=== PATIENT | female | born 1940 | race Caucasian/White ===

== ENCOUNTER 2022-07-24 12:00 | Inpatient (IN) | payer OTHER ==
[~2022-07-24] VITALS: Ht 165.1 cm; Wt 63.5 kg
[2022-07-24 12:08] VITALS: BP 121/55; PULSE 100; RESP 20; TEMP 100.1; O2SAT 96
--- NOTE | 2022-07-24 12:25 | NUR ---
PT W/ FEVER 102.9 - ORAL. MADE AWARE. COOLING MEASURES IN PLACE.
[2022-07-24 12:30] VITALS: O2SAT 97
--- NOTE | 2022-07-24 12:30 | NUR ---
81YO FEMALE PT [facility] C/O GEN WEAK AND SORE THROAT X3DAYS. REPORTS DECREASE IN APPT AND FEELING LETHARGIC. DENIES N/V/D,CHEST PAIN OR SOB. PT AAOX3. AMB W/ ASSIST. W/ FEVER AT ARRIVAL. COOLING RAGS IN PLACE HX: HTN, HLD, HYPOTHYROID, DM, DIMENTIA NKA
[2022-07-24] MEDS ORDERED: NACL 0.9% 1,000 ML IV SCH (12:45)
[2022-07-24] MEDS ORDERED: ACETAMINOPHEN EXTRA STRENGTH 500 MG TAB PO ONE (12:45)
--- NOTE | 2022-07-24 12:45 | NUR ---
SIN AT BEDSIDE FOR EVALUATION
--- NOTE | 2022-07-24 13:02 | NUR ---
pt swabbed for covid(diandra), flu and strepx2. walked and handed to lab
[2022-07-24 13:11] LABS: HEMATOCRIT 34.3 % (36-48); HEMOGLOBIN 11.6 g/dL (12.0-16.0); MEAN CORPUSCULAR HEMOGLOBIN 27 pg (27-31); MEAN CORPUSCULAR HGB CONC 34 g/dL (33-37); MEAN CORPUSCULAR VOLUME 78.7 fL (80-94); PLATELET COUNT (AUTO) 244 K/uL (140-450); RED BLOOD CELL COUNT(AUTO) 4.35 MIL/uL (4.20-5.40); RED CELL DISTRIBUTION WIDTH 15.5 % (11.6-13.7); WHITE BLOOD COUNT (AUTO) 14.4 K/uL (4.8-10.8)
[2022-07-24 13:34] LABS: ANION GAP 13.8 (8-16); ASPARTATE AMINOTRANSFERASE 35 U/L (15-37); CARBON DIOXIDE 26.3 mmol/L (21-32); CHLORIDE 96 mmol/L (98-107); CREATININE 1.1 mg/dL (0.6-1.3); GLUCOSE 296 mg/dL (74-106); POTASSIUM 3.1 mmol/L (3.5-5.1); SODIUM SERUM 133 mmol/L (136-145); TOTAL BILIRUBIN 0.9 mg/dL (0.0-1.0); UREA NITROGEN, BLOOD 22 mg/dL (7-18)
[2022-07-24 13:42] LABS: EOSINOPHILS % (MANUAL) 2 % (0-4); LYMPHOCYTES % (MANUAL) 2 % (20-46); MONOCYTES % (MANUAL) 3 % (5-12)
[2022-07-24] MEDS ORDERED: PIPERACILLIN/TAZOBACTAM 3.375 GM in DEXTROSE 5% 50 ML IV ONE (13:45)
[2022-07-24] MEDS ORDERED: VANCOMYCIN 1,000 MG in DEXTROSE 5% 250 ML IV ONE (13:45)
[2022-07-24] MEDS ORDERED: NACL 0.9% 1,000 ML IV ONE ×2 (13:45→14:15)
[2022-07-24] MEDS ORDERED: VANCOMYCIN 1,000 MG VIAL ONE (13:57)
[2022-07-24] MEDS ORDERED: PIPERACILLIN/TAZOBACTAM 3.375 GM VIAL IV ONE ×2 (13:57→21:26)
[2022-07-24 13:59] LABS: BILIRUBIN,URINE NEGATIVE (NEGATIVE); BLOOD, URINE 2+ (NEGATIVE); LEUKOCYTE ESTERASE ,URINE 3+ (NEGATIVE); NITRITE, URINE NEGATIVE (NEGATIVE); UGLUCOSE NEGATIVE (NEGATIVE)
[2022-07-24 14:08] LABS: APPEARANCE,URINE CLOUDY (CLEAR); COLOR,URINE AMBER (YELLOW)
[2022-07-24 14:10] LABS: RBC,URINE 11-20 (MOD) /HPF (0-5)
[2022-07-24] MEDS ORDERED: METF-346 PO (15:07)
[2022-07-24] MEDS ORDERED: CLON0.1T16 PO (15:07)
[2022-07-24] MEDS ORDERED: AMLO10TA88 PO (15:07)
[2022-07-24] MEDS ORDERED: ESCI-28 PO (15:07)
[2022-07-24] MEDS ORDERED: FURO20TA8 PO (15:07)
[2022-07-24] MEDS ORDERED: DICL100G5 TP (15:07)
[2022-07-24] MEDS ORDERED: MELO-174 PO (15:07)
[2022-07-24] MEDS ORDERED: ROSU10TA34 PO (15:07)
[2022-07-24] MEDS ORDERED: [UNRECOGNIZED DRUG - CODE] PO (15:07)
[2022-07-24] MEDS: POTASSIUM CHLORIDE 10 MEQ TABER PO ONE ×2 (15:30→15:33)
[2022-07-24] MEDS ORDERED: POTASSIUM CHLORIDE 10 MEQ TABER PO ONE (15:32)
[2022-07-24] MEDS ORDERED: ONDANSETRON 4 MG/2 ML VIAL IVP PRN (15:50)
[2022-07-24] MEDS ORDERED: HYDROcodone/APAP 5/325 MG 1 TAB TAB PO PRN ×2 (15:50)
[2022-07-24] MEDS ORDERED: DEXTROSE 50% 50 ML SYR IVP PRN (15:50)
[2022-07-24 16:40] VITALS: O2SAT 97
[2022-07-24] MEDS: BLOOD GLUCOSE MONITORING 1 DEV DEV FS SCH ×2 (16:41→21:25)
[2022-07-24] MEDS: INSULIN LISPRO SLIDING SCALE 100 UNITS/ML VIAL SUBQ PRN (16:42)
--- NOTE | 2022-07-24 18:10 | NUR ---
pt provided w/ dinner. pt awake, repositioned and eating in bed
--- NOTE | 2022-07-24 18:49 | NUR ---
The patient's care was reviewed and supervised by [facility], RN.
--- NOTE | 2022-07-24 19:32 | NUR ---
REPORT GIVEN TO CYNTHIA MERCEDES. TRANSFER OF CARE AT THIS TIME
[2022-07-24 20:02] VITALS: PULSE 64
[2022-07-24] MEDS: INSULIN LANTUS 100 UNITS/ML 10 ML VIAL SUBQ SCH (21:31)
[2022-07-24] MEDS: PIPERACILLIN/TAZOBACTAM 3.375 GM in DEXTROSE 5% 50 ML IV SCH (21:37)
--- NOTE | 2022-07-24 21:45 | NUR ---
Patient will be admitted to care of [facility]. Admited to TELE. Will go to [id number]. Belongings list completed. Report to Mariya MERCEDES.
[2022-07-24 21:50] VITALS: PULSE 58; RESP 17; O2SAT 96
--- NOTE | 2022-07-24 21:50 | NUR ---
ADMITTED A FEMALE PATIENT FROM ER VIA [facility] WITH CC: INCREASE LETHARGY. PT AWAKE ALERT ORIENTED. NO ACUTE DISTRESS, ON O2 AT 2L NC TOLERATING WELL. AMBULATORY. MRSA SCREENING DONE. SAFETY PRECAUTIONS IN PLACE. CALL LIGHT WITHIN REACH.
--- NOTE | 2022-07-24 22:15 | NUR ---
pt sister Nguyen is ok to translate due to pt speakig south korean only. Nguyen Beltran [phone]
[2022-07-25] VITALS (8 sets, daily range): BP systolic 92–118; BP diastolic 45–58; PULSE 58–90; RESP 17–20; TEMP 96.1–99.8; O2SAT 93–100
[2022-07-25] MEDS ORDERED: PIPERACILLIN/TAZOBACTAM 3.375 GM VIAL IV ONE (04:28)
[2022-07-25] MEDS: PIPERACILLIN/TAZOBACTAM 3.375 GM in DEXTROSE 5% 50 ML IV SCH ×3 (04:50→20:32)
[2022-07-25] MEDS: LEVOTHYROXINE 0.1 MG TAB PO SCH (05:41)
[2022-07-25] MEDS: INSULIN LISPRO SLIDING SCALE 100 UNITS/ML VIAL SUBQ PRN ×4 (06:32→20:38)
[2022-07-25 06:40] LABS: ANION GAP 9.4 (8-16); CARBON DIOXIDE 27.9 mmol/L (21-32); CHLORIDE 105 mmol/L (98-107); CREATININE 0.9 mg/dL (0.6-1.3); GLUCOSE 195 mg/dL (74-106); POTASSIUM 3.3 mmol/L (3.5-5.1); SODIUM SERUM 139 mmol/L (136-145); UREA NITROGEN, BLOOD 23 mg/dL (7-18)
[2022-07-25 07:05] LABS: BASOPHILS % (AUTO) 0.2 % (0.0-2.0); EOSINOPHILS % (AUTO) 0.3 % (0.0-4.0); HEMATOCRIT 30.3 % (36-48); HEMOGLOBIN 10.3 g/dL (12.0-16.0); LYMPHOCYTES # (AUTO) 0.6 K/uL (2.5-16.5); LYMPHOCYTES % (AUTO) 6.8 % (20.5-51.1); MEAN CORPUSCULAR HEMOGLOBIN 27 pg (27-31); MEAN CORPUSCULAR HGB CONC 34 g/dL (33-37); MEAN CORPUSCULAR VOLUME 79.3 fL (80-94); MONOCYTES # (AUTO) 0.5 K/uL (0.8-1.0); NEUTROPHILS # (AUTO) 7.5 K/uL (1.8-7.7); NEUTROPHILS % (AUTO) 86.7 % (42.2-75.2); PLATELET COUNT (AUTO) 166 K/uL (140-450); RED BLOOD CELL COUNT(AUTO) 3.82 MIL/uL (4.20-5.40); RED CELL DISTRIBUTION WIDTH 15.7 % (11.6-13.7); WHITE BLOOD COUNT (AUTO) 8.7 K/uL (4.8-10.8)
--- NOTE | 2022-07-25 07:12 | NUR ---
GAVE BEDSIDE REPORT TO NURSE NASEEM FOR CONTINUITY OF CARE. PATIENT STABLE.
--- NOTE | 2022-07-25 07:24 | NUR ---
receive the patient from the senior attorney Mariya in rm [address] aox4 with admitting diagnosis of sepsis , urosepsis on antibiotics therapy . will continue to monitor
[2022-07-25] MEDS: BLOOD GLUCOSE MONITORING 1 DEV DEV FS SCH ×4 (08:14→20:35)
--- NOTE | 2022-07-25 08:32 | NUR ---
potassium level 3.3 , magnesium level 1.7 . md made aware . will wait for an order .
--- NOTE | 2022-07-25 08:47 | NUR ---
PATIENT HAS BEEN SCREENED AND CATEGORIZED HIGH NUTRITION RISK. PATIENT WILL BE SEEN WITHIN 1-2 DAYS OF ADMISSION. 07/25/22-07/26/22 [facility] REFERRAL FOR UNCONTROLLED DIABETES RECEIVED ON 07/25/22. [address]
[2022-07-25] MEDS ORDERED: NON-FORMULARY ITEM (Amlodipine Besylate 1 TAB) PO SCH (09:00)
[2022-07-25] MEDS ORDERED: NON-FORMULARY ITEM (Escitalopram Oxalate (Escitalopram Oxalate) 1 TAB) PO SCH (09:00)
[2022-07-25] MEDS ORDERED: ROSUVASTATIN CALCIUM PO SCH (09:00)
--- NOTE | 2022-07-25 09:10 | NUR ---
Veena Warner adminitrator of [facility] called for an update regarding the plan of care
[2022-07-25] MEDS ORDERED: POTASSIUM CHLORIDE 10 MEQ TABER PO SCH (09:15)
[2022-07-25] MEDS ORDERED: MAG SULF 2000 MG/WATER PREMIX 50 ML IV SCH (09:15)
[2022-07-25] MEDS: ESCITALOPRAM 20 MG TAB PO SCH (09:28)
[2022-07-25] MEDS: ATORVASTATIN 20 MG TAB PO SCH (09:29)
[2022-07-25] MEDS: amLODIPine 5 MG TAB PO SCH (09:29)
[2022-07-25] MEDS: ENOXAPARIN 40 MG/0.4 ML SYR SUBQ SCH (09:30)
--- NOTE | 2022-07-25 09:31 | NUR ---
md order magnesium 2000 mg iv , potassium tab for replacement
--- NOTE | 2022-07-25 12:55 | NUR ---
grommet worker inform the RN to add CCho to her cardiac diet
--- NOTE | 2022-07-25 15:03 | NUR ---
Stefania the nurse practitioner for [facility] called for an update
--- NOTE | 2022-07-25 15:24 | NUR ---
07/25/22 RD INITIAL ASSESSMENT COMPLETED PLEASE REFER TO NUTRITION ASSESSMENT UNDER CARE ACTIVITY FOR ESTIMATED NUTRITIONAL NEEDS. 1. RD RECOMMENDS CONTINUE WITH CARDIAC DIET AND ADD CCHO DIET TOLERATED 2. RD TO FOLLOW-UP 3-5 DAYS, MODERATE RISK ADORE SIMMS RD
--- NOTE | 2022-07-25 18:40 | NUR ---
will endorse to fast food shift supervisor rn for continuity of care for antibiotic therapy for sepsis , urinary tract infection
--- NOTE | 2022-07-25 20:23 | NUR ---
RECEIVED REPORT FROM AM NURSE FOR CONTINUITY OF CARE. PATIENT ALERT ORIENTED IN NO ACUTE DISTRESS. ON 2L NC SATING 96%. DENIES PAIN. CALL LIGHT IN REACH. ASSISTED PATIENT TO THE RESTROOM. SAFETY MEASURES IN PLACE.
--- NOTE | 2022-07-25 20:32 | NUR ---
ADMINISTERED SCHEDULED DUE MEDICATIONS.
[2022-07-25] MEDS: INSULIN LANTUS 100 UNITS/ML 10 ML VIAL SUBQ SCH (20:39)
[2022-07-26] VITALS (9 sets, daily range): BP systolic 99–134; BP diastolic 42–56; PULSE 55–72; RESP 17–20; TEMP 37.2; O2SAT 95–98
[2022-07-26] MEDS: PIPERACILLIN/TAZOBACTAM 3.375 GM in DEXTROSE 5% 50 ML IV SCH ×3 (04:23→21:25)
[2022-07-26] MEDS: LEVOTHYROXINE 0.1 MG TAB PO SCH (05:33)
[2022-07-26] MEDS: BLOOD GLUCOSE MONITORING 1 DEV DEV FS SCH ×4 (06:32→21:10)
[2022-07-26] MEDS: INSULIN LISPRO SLIDING SCALE 100 UNITS/ML VIAL SUBQ PRN ×4 (06:33→21:17)
[2022-07-26 06:45] LABS: ANION GAP 9.9 (8-16); CHLORIDE 103 mmol/L (98-107); CREATININE 0.8 mg/dL (0.6-1.3); GLUCOSE 206 mg/dL (74-106); POTASSIUM 3.9 mmol/L (3.5-5.1); SODIUM SERUM 137 mmol/L (136-145); UREA NITROGEN, BLOOD 15 mg/dL (7-18)
[2022-07-26 06:55] LABS: BASOPHILS % (AUTO) 0.1 % (0.0-2.0); EOSINOPHILS # (AUTO) 0.1 K/uL (0-0.4); EOSINOPHILS % (AUTO) 1.6 % (0.0-4.0); HEMATOCRIT 29.7 % (36-48); HEMOGLOBIN 10.1 g/dL (12.0-16.0); LYMPHOCYTES % (AUTO) 14.2 % (20.5-51.1); MEAN CORPUSCULAR HEMOGLOBIN 27 pg (27-31); MEAN CORPUSCULAR HGB CONC 34 g/dL (33-37); MEAN CORPUSCULAR VOLUME 79.3 fL (80-94); MONOCYTES # (AUTO) 0.7 K/uL (0.8-1.0); MONOCYTES % (AUTO) 9.3 % (1.7-9.3); NEUTROPHILS # (AUTO) 5.2 K/uL (1.8-7.7); NEUTROPHILS % (AUTO) 74.8 % (42.2-75.2); PLATELET COUNT (AUTO) 148 K/uL (140-450); RED BLOOD CELL COUNT(AUTO) 3.75 MIL/uL (4.20-5.40); RED CELL DISTRIBUTION WIDTH 15.9 % (11.6-13.7)
--- NOTE | 2022-07-26 07:06 | NUR ---
receive from the assistant casino shift manager ama Meraz in rm [address]B aox3 with episode of confusion . admitting diagnosis of sepsis , urinary tract infection .will continue with antibiotics ,monitor blood sugar . will continue to monitor
[2022-07-26] MEDS: amLODIPine 5 MG TAB PO SCH (08:55)
[2022-07-26] MEDS: ESCITALOPRAM 20 MG TAB PO SCH (08:56)
[2022-07-26] MEDS: ATORVASTATIN 20 MG TAB PO SCH (08:56)
[2022-07-26] MEDS: ENOXAPARIN 40 MG/0.4 ML SYR SUBQ SCH (08:57)
--- NOTE | 2022-07-26 10:17 | NUR ---
Maylin hospice social worker for [facility] called . the rn gave her update for the patient
--- NOTE | 2022-07-26 11:27 | NUR ---
pt MRSA positive inform MD rivera .
[2022-07-26] MEDS: MUPIROCIN CA NASAL 2% 1GM TUBE NS SCH (11:43)
[2022-07-26] MEDS: CHLORHEXADINE GLUC 2% CLOTH TP SCH (11:44)
--- NOTE | 2022-07-26 12:33 | NUR ---
transfer to medical surgical . discontinue heart monitor
--- NOTE | 2022-07-26 18:30 | NUR ---
will endorse to night warehouse manager rn for continuity of care . still with antibiotics Piperacillin for sepsis , urinary tract infection . will do blood sugar check with sliding scale
--- NOTE | 2022-07-26 19:00 | NUR ---
RECEIVED PT, ON BED AWAKE AND ALERT. PT ABLE TO VERBALIZED NEEDS. PT IS WITH INTERMITTENT CONFUSION. PT IS RENAL DIET. PT IS CONTINENT AND ABLE TO AMBULATE TO RESTROOM INDEPENDENTLY. IV SITE IS AT RIGHT HAND 22G. SKIN IS INTACT.
[2022-07-26] MEDS: INSULIN LANTUS 100 UNITS/ML 10 ML VIAL SUBQ SCH (21:17)
--- NOTE | 2022-07-26 22:00 | NUR ---
PT IS SLEEPING WELL. NO FACIAL GRIMACING. NO SOB OR DISTRESS.
--- NOTE | 2022-07-27 01:00 | NUR ---
PT IS ASLEEP.
[2022-07-27 04:00] VITALS: BP 118/57; PULSE 63; RESP 18; TEMP 97.4; O2SAT 98
[2022-07-27] MEDS: PIPERACILLIN/TAZOBACTAM 3.375 GM in DEXTROSE 5% 50 ML IV SCH ×2 (05:55→12:24)
[2022-07-27 06:38] LABS: BASOPHILS % (AUTO) 0.3 % (0.0-2.0); EOSINOPHILS # (AUTO) 0.1 K/uL (0-0.4); EOSINOPHILS % (AUTO) 1.2 % (0.0-4.0); HEMATOCRIT 33.3 % (36-48); HEMOGLOBIN 11.3 g/dL (12.0-16.0); LYMPHOCYTES # (AUTO) 1.2 K/uL (2.5-16.5); LYMPHOCYTES % (AUTO) 20.6 % (20.5-51.1); MEAN CORPUSCULAR HEMOGLOBIN 27 pg (27-31); MEAN CORPUSCULAR HGB CONC 34 g/dL (33-37); MEAN CORPUSCULAR VOLUME 79.2 fL (80-94); MONOCYTES # (AUTO) 0.5 K/uL (0.8-1.0); MONOCYTES % (AUTO) 9.2 % (1.7-9.3); NEUTROPHILS % (AUTO) 68.7 % (42.2-75.2); PLATELET COUNT (AUTO) 200 K/uL (140-450); RED BLOOD CELL COUNT(AUTO) 4.21 MIL/uL (4.20-5.40); RED CELL DISTRIBUTION WIDTH 15.7 % (11.6-13.7); WHITE BLOOD COUNT (AUTO) 5.8 K/uL (4.8-10.8)
[2022-07-27] MEDS: LEVOTHYROXINE 0.1 MG TAB PO SCH (06:40)
[2022-07-27] MEDS: BLOOD GLUCOSE MONITORING 1 DEV DEV FS SCH ×2 (06:41→12:19)
[2022-07-27] MEDS: INSULIN LISPRO SLIDING SCALE 100 UNITS/ML VIAL SUBQ PRN ×2 (06:42→12:24)
[2022-07-27 06:43] LABS: ANION GAP 12.7 (8-16); CARBON DIOXIDE 26.8 mmol/L (21-32); CHLORIDE 102 mmol/L (98-107); CREATININE 0.8 mg/dL (0.6-1.3); GLUCOSE 168 mg/dL (74-106); POTASSIUM 3.5 mmol/L (3.5-5.1); SODIUM SERUM 138 mmol/L (136-145); UREA NITROGEN, BLOOD 13 mg/dL (7-18)
--- NOTE | 2022-07-27 07:15 | NUR ---
PT IS ON STABLE CONDITION. ENDORSED TO DAY SHIFT NURSE FOR CONTINUITY OF CARE. SAFETY MEASURES ARE IN PLACE.
--- NOTE | 2022-07-27 07:15 | NUR ---
RECEIVED REPORT FROM VIRTUAL ASSISTANT NURSE FOR CONTINUITY OF CARE. PT STABLE AT THIS TIME.
[2022-07-27 08:00] VITALS: BP 122/50; PULSE 61; PULSE 97; RESP 16; RESP 18; TEMP 97.9; O2SAT 97
[2022-07-27] MEDS: ESCITALOPRAM 20 MG TAB PO SCH (09:39)
[2022-07-27] MEDS: amLODIPine 5 MG TAB PO SCH (09:40)
[2022-07-27] MEDS: ATORVASTATIN 20 MG TAB PO SCH (09:40)
[2022-07-27] MEDS: ENOXAPARIN 40 MG/0.4 ML SYR SUBQ SCH (09:41)
--- NOTE | 2022-07-27 10:51 | NUR ---
CALLED [facility] AND ASKED WHAT THERE PROCESS WAS FOR A PATIENT TO GO BACK TO THEM THEY SAID TO FAX ANY NEW ORDERS IF ANY AND WE WOULD HAVE TO ARRANGE TRANSPORTATION FOR ANY TIME BUT PATIENT WILL BE GOING TO ROOM 14. CALLED [employer] AND WAS ABLE TO ARRANGE GURNEY TRANSPORTATION WITH 2L OF O2 NC FOR 1300 [employer] TIME NURSE MICHEL AWARE OF THE ABOVE INFORMATION. Addendum: 07/27/22 at 1058 by CAESAR ANNE CM CALLED PATIENTS SISTER JOSELO AND INFORMED HER OF THE ABOVE INFORMATION. RESERVATION #[id number] FOR TRANSPORT.
[2022-07-27] MEDS: MUPIROCIN CA NASAL 2% 1GM TUBE NS SCH (12:18)
[2022-07-27] MEDS: CHLORHEXADINE GLUC 2% CLOTH TP SCH (12:24)
[2022-07-27 12:32] VITALS: BP 122/50; PULSE 61; RESP 16; TEMP 97.9
== END 2022-07-27 14:21 | DRG 871 ==
LOC: MED 12:00 → MMU 15:49 → MTU 20:40
PROVIDERS: ADMIT Internal Medicine; ATTEND Internal Medicine
DX: A41.9 Sepsis, unspecified organism (principal); J96.00 Acute respiratory failure, unspecified whether with hypoxia or hypercapnia; N39.0 Urinary tract infection, site not specified; E44.0 Moderate protein-calorie malnutrition; F03.90 Unspecified dementia, unspecified severity, without behavioral disturbance, psychotic disturbance, mood disturbance, and anxiety; Z68.23 Body mass index [BMI] 23.0-23.9, adult; E03.9 Hypothyroidism, unspecified; E78.00 Pure hypercholesterolemia, unspecified; I10 Essential (primary) hypertension; E11.9 Type 2 diabetes mellitus without complications; Z20.822 Contact with and (suspected) exposure to COVID-19; B96.20 Unspecified Escherichia coli [E. coli] as the cause of diseases classified elsewhere
CPT/HCPCS: 36415; 71045; 80048; 80053; 81001; 82550; 82948; 83605; 83735; 84484; 85025; 85610; 85730; 87040; 87081; 87086; 93005; 96361; 96365; 96375; 99291; J1650; J1815; J2543; J3370; J3475; J7060; Q0092

== ENCOUNTER 2022-11-04 18:48 | Inpatient (IN) | payer OTHER ==
[~2022-11-04] VITALS: Ht 165.1 cm; Wt 74.8 kg
[~2022-11-04 18:48] MED LIST: AMLO10TA88 PO; CLON0.1T16 PO; DICL100G32 TP; ESCI-28 PO; FURO20TA8 PO; MELO-174 PO; METF-346 PO; ROSU10TA34 PO; [UNRECOGNIZED DRUG - CODE] PO
[2022-11-04 18:59] VITALS: BP 136/68; PULSE 59; RESP 14; TEMP 96.6; O2SAT 98
[2022-11-04 20:16] LABS: BASOPHILS % (AUTO) 0.4 % (0.0-2.0); EOSINOPHILS # (AUTO) 0.2 K/uL (0-0.4); EOSINOPHILS % (AUTO) 1.6 % (0.0-4.0); HEMATOCRIT 27.1 % (36-48); HEMOGLOBIN 9.9 g/dL (12.0-16.0); LYMPHOCYTES # (AUTO) 3.3 K/uL (2.5-16.5); LYMPHOCYTES % (AUTO) 30.7 % (20.5-51.1); MEAN CORPUSCULAR HEMOGLOBIN 27 pg (27-31); MEAN CORPUSCULAR HGB CONC 37 g/dL (33-37); MEAN CORPUSCULAR VOLUME 74.9 fL (80-94); MONOCYTES # (AUTO) 0.7 K/uL (0.8-1.0); MONOCYTES % (AUTO) 6.7 % (1.7-9.3); NEUTROPHILS # (AUTO) 6.5 K/uL (1.8-7.7); NEUTROPHILS % (AUTO) 60.6 % (42.2-75.2); PLATELET COUNT (AUTO) 278 K/uL (140-450); RED BLOOD CELL COUNT(AUTO) 3.61 MIL/uL (4.20-5.40); RED CELL DISTRIBUTION WIDTH 17.2 % (11.6-13.7); WHITE BLOOD COUNT (AUTO) 10.8 K/uL (4.8-10.8)
[2022-11-04 20:59] LABS: ALANINE AMINOTRANSFERASE 41 U/L (12-78); ALBUMIN 3.9 g/dL (3.4-5.0); ALKALINE PHOSPHATASE 65 U/L (50-136); ANION GAP 13.2 (8-16); ASPARTATE AMINOTRANSFERASE 59 U/L (15-37); CALCIUM 10.3 mg/dL (8.5-10.1); CARBON DIOXIDE 24.6 mmol/L (21-32); CHLORIDE 79 mmol/L (98-107); GLUCOSE 62 mg/dL (74-106); LIPASE 493 U/L (73-393); TOTAL BILIRUBIN 1.4 mg/dL (0.0-1.0); UREA NITROGEN, BLOOD 9 mg/dL (7-18)
[2022-11-04 21:02] LABS: POTASSIUM 2.8 mmol/L (3.5-5.1); SODIUM SERUM 114 mmol/L (136-145)
[2022-11-04] MEDS ORDERED: KCL 20 MEQ IN 100 mL PREMIX 200 ML IV ONE (21:35)
[2022-11-04 22:33] LABS: APPEARANCE,URINE HAZY (CLEAR); BILIRUBIN,URINE NEGATIVE (NEGATIVE); BLOOD, URINE TRACE-I (NEGATIVE); COLOR,URINE YELLOW (YELLOW); LEUKOCYTE ESTERASE ,URINE 3+ (NEGATIVE); NITRITE, URINE NEGATIVE (NEGATIVE); PROTEIN,URINE 1+ (NEGATIVE); UGLUCOSE NEGATIVE (NEGATIVE); UROBILINOGEN,URINE 0.2 EU/dL (0.2 - 1)
[2022-11-04 22:50] LABS: FLU A ANTIGEN negative (NEGATIVE); FLU B ANTIGEN NEGATIVE (NEGATIVE)
[2022-11-04 23:02] LABS: BACTERIA,URINE 3+ /HPF (None Seen); RBC,URINE NONE SEEN /HPF (0-5); SQUAMOUS EPITHELIAL CELL,UR 0-3 (FEW) /LPF (0-3 (FEW)); WBC,URINE 80-100 /HPF (0-5)
[2022-11-05] MEDS ORDERED: cefTRIAXone 1,000 MG VIAL ONE (03:12)
[2022-11-05] MEDS ORDERED: KCL 20 MEQ IN 100 mL PREMIX 100 ML IV ONE (04:52)
[2022-11-05 05:18] VITALS: BP 119/95; PULSE 67; RESP 18; TEMP 97; O2SAT 96
[2022-11-05] MEDS ORDERED: POTASSIUM CHLORIDE 10 MEQ TABER PO PRN (07:45)
[2022-11-05] MEDS ORDERED: LORazepam 2 MG/ML VIAL IVP PRN (07:45)
[2022-11-05] MEDS ORDERED: ZOLPIDEM 10 MG TAB PO PRN (07:45)
[2022-11-05] MEDS ORDERED: DOCUSATE SODIUM 100 MG GELCAP PO PRN (07:45)
[2022-11-05] MEDS ORDERED: MORPHINE SULFATE 2 MG/ML SYR IVP PRN (07:45)
[2022-11-05] MEDS ORDERED: MAG SULF 2000 MG/WATER PREMIX 50 ML IV PRN (07:45)
[2022-11-05] MEDS ORDERED: ONDANSETRON 4 MG/2 ML VIAL IVP PRN (07:45)
[2022-11-05] MEDS ORDERED: POTASSIUM CHL 20 MEQ/NACL 0.9% 1,000 ML IV SCH (07:50)
[2022-11-05 08:00] VITALS: BP 146/68; PULSE 62; PULSE 63; RESP 17; TEMP 96.2; O2SAT 97
[2022-11-05] MEDS: NACL 0.9% 1,000 ML IV SCH ×2 (10:48→23:47)
[2022-11-05 10:55] LABS: CALCIUM 9.3 mg/dL (8.5-10.1); CARBON DIOXIDE 26.5 mmol/L (21-32); CHLORIDE 87 mmol/L (98-107); CREATININE 0.9 mg/dL (0.6-1.3); GLUCOSE 97 mg/dL (74-106); POTASSIUM 3.5 mmol/L (3.5-5.1); UREA NITROGEN, BLOOD 8 mg/dL (7-18)
[2022-11-05 10:58] LABS: SODIUM SERUM 120 mmol/L (136-145)
[2022-11-05 12:00] VITALS: BP 135/61; PULSE 66; RESP 17; TEMP 97.1; O2SAT 97
[2022-11-05 12:07] VITALS: O2SAT 95
[2022-11-05 12:19] LABS: URINE TOTAL PROTEIN 37.7 mg/dL (0-12)
[2022-11-05 13:30] LABS: ANION GAP 9.8 (8-16); CALCIUM 9.3 mg/dL (8.5-10.1); CARBON DIOXIDE 27.8 mmol/L (21-32); CHLORIDE 87 mmol/L (98-107); CREATININE 0.9 mg/dL (0.6-1.3); GLUCOSE 99 mg/dL (74-106); POTASSIUM 3.6 mmol/L (3.5-5.1); UREA NITROGEN, BLOOD 9 mg/dL (7-18)
[2022-11-05 13:33] LABS: SODIUM SERUM 121 mmol/L (136-145)
[2022-11-05 16:00] VITALS: PULSE 66
[2022-11-05 18:23] LABS: ANION GAP 10.6 (8-16); CALCIUM 9.3 mg/dL (8.5-10.1); CARBON DIOXIDE 25.8 mmol/L (21-32); CHLORIDE 88 mmol/L (98-107); CREATININE 0.8 mg/dL (0.6-1.3); GLUCOSE 100 mg/dL (74-106); POTASSIUM 3.4 mmol/L (3.5-5.1); SODIUM SERUM 121 mmol/L (136-145); UREA NITROGEN, BLOOD 11 mg/dL (7-18)
[2022-11-05 20:00] VITALS: BP 133/66; PULSE 68; RESP 18; TEMP 96.8; O2SAT 96; O2SAT 98
[2022-11-06] VITALS: BP 131/64; PULSE 63; PULSE 65; RESP 18; TEMP 96.4; O2SAT 98
[2022-11-06 00:25] LABS: ANION GAP 10.2 (8-16); CARBON DIOXIDE 25.8 mmol/L (21-32); CHLORIDE 90 mmol/L (98-107); CREATININE 0.9 mg/dL (0.6-1.3); GLUCOSE 101 mg/dL (74-106); SODIUM SERUM 122 mmol/L (136-145); UREA NITROGEN, BLOOD 10 mg/dL (7-18)
[2022-11-06 04:00] VITALS: BP 133/62; PULSE 60; PULSE 61; RESP 18; TEMP 96.1; O2SAT 97
[2022-11-06 06:31] LABS: BASOPHILS % (AUTO) 0.4 % (0.0-2.0); EOSINOPHILS # (AUTO) 0.2 K/uL (0-0.4); EOSINOPHILS % (AUTO) 2.3 % (0.0-4.0); HEMATOCRIT 27.1 % (36-48); HEMOGLOBIN 9.5 g/dL (12.0-16.0); LYMPHOCYTES # (AUTO) 1.5 K/uL (2.5-16.5); LYMPHOCYTES % (AUTO) 21.5 % (20.5-51.1); MEAN CORPUSCULAR HEMOGLOBIN 28 pg (27-31); MEAN CORPUSCULAR HGB CONC 35 g/dL (33-37); MEAN CORPUSCULAR VOLUME 78.6 fL (80-94); MONOCYTES # (AUTO) 0.4 K/uL (0.8-1.0); NEUTROPHILS # (AUTO) 4.8 K/uL (1.8-7.7); NEUTROPHILS % (AUTO) 69.8 % (42.2-75.2); PLATELET COUNT (AUTO) 235 K/uL (140-450); RED BLOOD CELL COUNT(AUTO) 3.45 MIL/uL (4.20-5.40); RED CELL DISTRIBUTION WIDTH 17.7 % (11.6-13.7); WHITE BLOOD COUNT (AUTO) 6.9 K/uL (4.8-10.8)
[2022-11-06 06:54] LABS: ANION GAP 10.8 (8-16); CALCIUM 9.1 mg/dL (8.5-10.1); CARBON DIOXIDE 24.1 mmol/L (21-32); CHLORIDE 92 mmol/L (98-107); CREATININE 0.8 mg/dL (0.6-1.3); GLUCOSE 113 mg/dL (74-106); POTASSIUM 3.9 mmol/L (3.5-5.1); SODIUM SERUM 123 mmol/L (136-145); UREA NITROGEN, BLOOD 8 mg/dL (7-18)
[2022-11-06 08:00] VITALS: BP 141/63; PULSE 64; PULSE 65; PULSE 69; RESP 18; RESP 20; TEMP 96.8; O2SAT 100; O2SAT 96
[2022-11-06 08:05] VITALS: O2SAT 92
[2022-11-06] MEDS: NACL 0.9% 1,000 ML IV SCH ×2 (12:10→19:07)
[2022-11-06 12:48] LABS: CALCIUM 9.1 mg/dL (8.5-10.1); CARBON DIOXIDE 22.2 mmol/L (21-32); CHLORIDE 92 mmol/L (98-107); CREATININE 0.8 mg/dL (0.6-1.3); GLUCOSE 121 mg/dL (74-106); POTASSIUM 4.2 mmol/L (3.5-5.1); SODIUM SERUM 124 mmol/L (136-145); UREA NITROGEN, BLOOD 9 mg/dL (7-18)
[2022-11-06 18:30] LABS: ANION GAP 11.8 (8-16); CALCIUM 8.8 mg/dL (8.5-10.1); CARBON DIOXIDE 23.9 mmol/L (21-32); CHLORIDE 94 mmol/L (98-107); CREATININE 0.8 mg/dL (0.6-1.3); GLUCOSE 113 mg/dL (74-106); POTASSIUM 3.7 mmol/L (3.5-5.1); SODIUM SERUM 126 mmol/L (136-145); UREA NITROGEN, BLOOD 7 mg/dL (7-18)
[2022-11-06 20:00] VITALS: BP_SYST 122; BP_SYST 149; BP_DIAS 71; BP_DIAS 79; PULSE 69; PULSE 71; RESP 18; TEMP 96.8; TEMP 97; O2SAT 93; O2SAT 94; O2SAT 95
[2022-11-07] MEDS: ACETAMINOPHEN 325 MG TAB PO PRN ×2 (03:55→18:14)
[2022-11-07 04:00] VITALS: BP 117/71; PULSE 68; RESP 18; TEMP 97.5; O2SAT 96
[2022-11-07 06:28] LABS: BASOPHILS % (AUTO) 0.4 % (0.0-2.0); EOSINOPHILS # (AUTO) 0.2 K/uL (0-0.4); EOSINOPHILS % (AUTO) 2.1 % (0.0-4.0); HEMATOCRIT 24.9 % (36-48); HEMOGLOBIN 8.7 g/dL (12.0-16.0); MEAN CORPUSCULAR HEMOGLOBIN 28 pg (27-31); MEAN CORPUSCULAR HGB CONC 35 g/dL (33-37); MEAN CORPUSCULAR VOLUME 79.1 fL (80-94); MONOCYTES # (AUTO) 0.5 K/uL (0.8-1.0); MONOCYTES % (AUTO) 6.6 % (1.7-9.3); NEUTROPHILS # (AUTO) 5.6 K/uL (1.8-7.7); NEUTROPHILS % (AUTO) 76.9 % (42.2-75.2); PLATELET COUNT (AUTO) 243 K/uL (140-450); RED BLOOD CELL COUNT(AUTO) 3.14 MIL/uL (4.20-5.40); RED CELL DISTRIBUTION WIDTH 18.1 % (11.6-13.7); WHITE BLOOD COUNT (AUTO) 7.3 K/uL (4.8-10.8)
[2022-11-07 06:44] LABS: CALCIUM 8.7 mg/dL (8.5-10.1); CARBON DIOXIDE 24.8 mmol/L (21-32); CHLORIDE 95 mmol/L (98-107); CREATININE 0.9 mg/dL (0.6-1.3); GLUCOSE 175 mg/dL (74-106); POTASSIUM 3.8 mmol/L (3.5-5.1); SODIUM SERUM 127 mmol/L (136-145); UREA NITROGEN, BLOOD 6 mg/dL (7-18)
[2022-11-07 08:00] VITALS: BP 149/72; PULSE 71; RESP 16; TEMP 97.2; O2SAT 99
[2022-11-07] MEDS ORDERED: LEVOTHYROXINE 0.112 MG TAB PO SCH (08:05)
[2022-11-07] MEDS ORDERED: CEPH-588 PO (08:47)
[2022-11-07 11:33] VITALS: O2SAT 97
[2022-11-07 14:11] VITALS: BP 149/72; PULSE 71; RESP 16; TEMP 97.2
[2022-11-07] MEDS: NACL 0.9% 1,000 ML IV SCH (14:50)
[2022-11-07 16:00] VITALS: BP 137/71; PULSE 76; RESP 18; TEMP 97.6; O2SAT 97
== END 2022-11-07 19:14 | disposition home or self-care (01) | DRG 444 ==
LOC: MED 18:48 → MTU 11-05 03:30
PROVIDERS: ADMIT Family Medicine; ATTEND Family Medicine
DX: K80.20 Calculus of gallbladder without cholecystitis without obstruction (principal); K68.3 Retroperitoneal hematoma; E87.1 Hypo-osmolality and hyponatremia; N39.0 Urinary tract infection, site not specified; E87.6 Hypokalemia; Z20.822 Contact with and (suspected) exposure to COVID-19; I10 Essential (primary) hypertension; E11.9 Type 2 diabetes mellitus without complications; F03.90 Unspecified dementia, unspecified severity, without behavioral disturbance, psychotic disturbance, mood disturbance, and anxiety; E03.9 Hypothyroidism, unspecified; K43.9 Ventral hernia without obstruction or gangrene; D64.9 Anemia, unspecified; R74.01 Elevation of levels of liver transaminase levels
CPT/HCPCS: 36415; 71045; 76700; 80048; 80053; 81001; 82533; 82570; 83690; 83735; 83930; 83935; 84300; 84439; 84443; 84484; 85025; 87040; 87081; 87086; 93005; 96365; 97116; 97163-GP; 99285; J0696; J3475; J3480; J7060; Q0092; Q9967

== ENCOUNTER 2022-11-28 20:39 | Inpatient (IN) | payer OTHER ==
[~2022-11-28] VITALS: Ht 157.5 cm; Wt 63.5 kg
[~2022-11-28 20:39] MED LIST changes: +CEPH-588 PO
[2022-11-28 21:19] VITALS: BP 134/61; PULSE 58; RESP 16; TEMP 97.5; O2SAT 95
[2022-11-28] MEDS ORDERED: NACL 0.9% 1,000 ML IV ONE (21:35)
[2022-11-28 21:58] LABS: BASOPHILS % (AUTO) 0.6 % (0.0-2.0); EOSINOPHILS # (AUTO) 0.1 K/uL (0-0.4); EOSINOPHILS % (AUTO) 1.1 % (0.0-4.0); HEMOGLOBIN 12.1 g/dL (12.0-16.0); LYMPHOCYTES # (AUTO) 1.7 K/uL (2.5-16.5); LYMPHOCYTES % (AUTO) 19.9 % (20.5-51.1); MEAN CORPUSCULAR HEMOGLOBIN 30 pg (27-31); MEAN CORPUSCULAR HGB CONC 36 g/dL (33-37); MONOCYTES # (AUTO) 0.6 K/uL (0.8-1.0); MONOCYTES % (AUTO) 7.3 % (1.7-9.3); NEUTROPHILS % (AUTO) 71.1 % (42.2-75.2); PLATELET COUNT (AUTO) 338 K/uL (140-450); RED BLOOD CELL COUNT(AUTO) 4.04 MIL/uL (4.20-5.40); RED CELL DISTRIBUTION WIDTH 24.3 % (11.6-13.7); WHITE BLOOD COUNT (AUTO) 8.4 K/uL (4.8-10.8)
[2022-11-28 22:15] LABS: ALANINE AMINOTRANSFERASE 31 U/L (12-78); ALBUMIN 4.3 g/dL (3.4-5.0); ALKALINE PHOSPHATASE 60 U/L (50-136); ANION GAP 13.7 (8-16); ASPARTATE AMINOTRANSFERASE 39 U/L (15-37); CARBON DIOXIDE 25.6 mmol/L (21-32); CHLORIDE 84 mmol/L (98-107); GLUCOSE 51 mg/dL (74-106); LIPASE 73 U/L (16-77); MAGNESIUM 1.4 mg/dL (1.8-2.4); POTASSIUM 3.3 mmol/L (3.5-5.1); SODIUM SERUM 120 mmol/L (136-145); TOTAL BILIRUBIN 0.8 mg/dL (0.0-1.0); TOTAL PROTEIN, SERUM 8.2 g/dL (6.4-8.2); UREA NITROGEN, BLOOD 9 mg/dL (7-18)
[2022-11-28 22:59] LABS: APPEARANCE,URINE CLEAR (CLEAR); BILIRUBIN,URINE NEGATIVE (NEGATIVE); BLOOD, URINE TRACE-I (NEGATIVE); COLOR,URINE YELLOW (YELLOW); LEUKOCYTE ESTERASE ,URINE 3+ (NEGATIVE); NITRITE, URINE POSITIVE (NEGATIVE); PH,URINE 7.5 (5.0-9.0); PROTEIN,URINE 1+ (NEGATIVE); UGLUCOSE NEGATIVE (NEGATIVE); UROBILINOGEN,URINE 0.2 EU/dL (0.2 - 1)
[2022-11-28 23:09] LABS: BACTERIA,URINE >30 (MANY) /HPF (None Seen); MUCUS,URINE 1+ /LPF (None Seen); RBC,URINE 0-5 /HPF (0-5); SQUAMOUS EPITHELIAL CELL,UR 0-3 (FEW) /LPF (0-3 (FEW)); WBC,URINE TOO MANY TO COUNT /HPF (0-5)
[2022-11-29] MEDS ORDERED: cefTRIAXone 1,000 MG VIAL ONE ×2 (00:49→17:34)
[2022-11-29] MEDS ORDERED: ONDANSETRON 4 MG/2 ML VIAL IM/IVP PRN (00:55)
[2022-11-29] MEDS ORDERED: ZOLPIDEM 5 MG TAB PO PRN (00:55)
[2022-11-29] MEDS ORDERED: HYDROcodone/APAP 7.5/325 MG 1 TAB PO PRN (00:55)
[2022-11-29] MEDS ORDERED: NACL 0.9% 1,000 ML IV SCH (00:55)
[2022-11-29] MEDS ORDERED: POTASSIUM CHLORIDE 10 MEQ TABER PO PRN (00:55)
[2022-11-29] MEDS ORDERED: DOCUSATE SODIUM 100 MG GELCAP PO PRN (00:55)
[2022-11-29] MEDS ORDERED: guaiFENesin DM 200/20 MG-10 ML 10 ML UDC PO PRN (00:55)
[2022-11-29 06:41] LABS: BASOPHILS % (AUTO) 0.5 % (0.0-2.0); EOSINOPHILS # (AUTO) 0.1 K/uL (0-0.4); EOSINOPHILS % (AUTO) 0.9 % (0.0-4.0); HEMATOCRIT 32.5 % (36-48); HEMOGLOBIN 11.5 g/dL (12.0-16.0); LYMPHOCYTES # (AUTO) 1.3 K/uL (2.5-16.5); LYMPHOCYTES % (AUTO) 18.5 % (20.5-51.1); MEAN CORPUSCULAR HEMOGLOBIN 30 pg (27-31); MEAN CORPUSCULAR HGB CONC 35 g/dL (33-37); MONOCYTES # (AUTO) 0.5 K/uL (0.8-1.0); MONOCYTES % (AUTO) 7.3 % (1.7-9.3); NEUTROPHILS % (AUTO) 72.8 % (42.2-75.2); PLATELET COUNT (AUTO) 321 K/uL (140-450); RED BLOOD CELL COUNT(AUTO) 3.87 MIL/uL (4.20-5.40); RED CELL DISTRIBUTION WIDTH 24.4 % (11.6-13.7); WHITE BLOOD COUNT (AUTO) 6.9 K/uL (4.8-10.8)
[2022-11-29 06:53] LABS: ALANINE AMINOTRANSFERASE 26 U/L (12-78); ALBUMIN 3.9 g/dL (3.4-5.0); ALKALINE PHOSPHATASE 56 U/L (50-136); ANION GAP 10.6 (8-16); ASPARTATE AMINOTRANSFERASE 32 U/L (15-37); CALCIUM 9.1 mg/dL (8.5-10.1); CARBON DIOXIDE 26.4 mmol/L (21-32); CHLORIDE 89 mmol/L (98-107); GLUCOSE 65 mg/dL (74-106); SODIUM SERUM 122 mmol/L (136-145); TOTAL BILIRUBIN 0.7 mg/dL (0.0-1.0); TOTAL PROTEIN, SERUM 7.5 g/dL (6.4-8.2); UREA NITROGEN, BLOOD 8 mg/dL (7-18)
[2022-11-29] MEDS ORDERED: DEXTROSE 50% 50 ML SYR IVP PRN (08:45)
[2022-11-29] MEDS ORDERED: LOSARTAN 25 MG TAB PO SCH (09:00)
[2022-11-29] MEDS ORDERED: LEVOTHYROXINE 0.075 MG TAB PO SCH (09:00)
[2022-11-29] MEDS: PANTOPRAZOLE 40 MG TABEC PO SCH (09:22)
[2022-11-29] MEDS: DEXT 5% /NACL 0.9% 1,000 ML IV SCH ×2 (09:24→21:10)
[2022-11-29 10:17] VITALS: O2SAT 99
[2022-11-29] MEDS: BLOOD GLUCOSE MONITORING 1 DEV DEV FS SCH ×3 (12:01→20:43)
[2022-11-29 13:59] VITALS: O2SAT 100
[2022-11-29 19:30] VITALS: BP 121/65; PULSE 54; PULSE 55; RESP 16; TEMP 96.8; O2SAT 95
[2022-11-29] MEDS: INSULIN LISPRO SLIDING SCALE 100 UNITS/ML VIAL SUBQ PRN (20:48)
[2022-11-30] VITALS (9 sets, daily range): BP systolic 113–139; BP diastolic 53–73; PULSE 54–110; RESP 17–18; TEMP 96.8–98.1; O2SAT 94–98
[2022-11-30] MEDS: LEVOTHYROXINE 0.025 MG TAB PO SCH (06:27)
[2022-11-30] MEDS: BLOOD GLUCOSE MONITORING 1 DEV DEV FS SCH ×4 (06:29→20:12)
[2022-11-30] MEDS ORDERED: LEVOTHYROXINE 0.1 MG TAB PO SCH (06:30)
[2022-11-30] MEDS: INSULIN LISPRO SLIDING SCALE 100 UNITS/ML VIAL SUBQ PRN ×4 (06:33→20:13)
[2022-11-30 06:49] LABS: BASOPHILS # (AUTO) 0.1 K/uL (0.00-0.22); BASOPHILS % (AUTO) 0.7 % (0.0-2.0); EOSINOPHILS # (AUTO) 0.1 K/uL (0-0.4); EOSINOPHILS % (AUTO) 1.6 % (0.0-4.0); HEMOGLOBIN 12.6 g/dL (12.0-16.0); LYMPHOCYTES # (AUTO) 1.8 K/uL (2.5-16.5); LYMPHOCYTES % (AUTO) 22.9 % (20.5-51.1); MEAN CORPUSCULAR HEMOGLOBIN 30 pg (27-31); MEAN CORPUSCULAR HGB CONC 35 g/dL (33-37); MEAN CORPUSCULAR VOLUME 84.9 fL (80-94); MONOCYTES # (AUTO) 0.6 K/uL (0.8-1.0); MONOCYTES % (AUTO) 7.2 % (1.7-9.3); NEUTROPHILS # (AUTO) 5.4 K/uL (1.8-7.7); NEUTROPHILS % (AUTO) 67.6 % (42.2-75.2); PLATELET COUNT (AUTO) 332 K/uL (140-450); RED BLOOD CELL COUNT(AUTO) 4.24 MIL/uL (4.20-5.40); RED CELL DISTRIBUTION WIDTH 24.7 % (11.6-13.7)
[2022-11-30 07:35] LABS: ANION GAP 17.4 (8-16); CALCIUM 9.6 mg/dL (8.5-10.1); CARBON DIOXIDE 22.4 mmol/L (21-32); CHLORIDE 90 mmol/L (98-107); CREATININE 1.1 mg/dL (0.6-1.3); GLUCOSE 150 mg/dL (74-106); POTASSIUM 3.8 mmol/L (3.5-5.1); SODIUM SERUM 126 mmol/L (136-145); UREA NITROGEN, BLOOD 6 mg/dL (7-18)
[2022-11-30] MEDS: NACL 0.9% 1,000 ML IV SCH ×2 (07:55→17:58)
[2022-11-30] MEDS: PANTOPRAZOLE 40 MG TABEC PO SCH (08:46)
[2022-11-30] MEDS: LOSARTAN 50 MG TAB PO SCH (08:46)
[2022-11-30] MEDS: ACETAMINOPHEN 325 MG TAB PO PRN (19:17)
[2022-12-01] VITALS (7 sets, daily range): BP systolic 118–148; BP diastolic 59–76; PULSE 60–83; RESP 16–18; TEMP 97.3–98.2; O2SAT 94–98
[2022-12-01] MEDS: NACL 0.9% 1,000 ML IV SCH (05:23)
[2022-12-01] MEDS: LEVOTHYROXINE 0.025 MG TAB PO SCH (05:36)
[2022-12-01] MEDS: INSULIN LISPRO SLIDING SCALE 100 UNITS/ML VIAL SUBQ PRN ×4 (06:36→20:18)
[2022-12-01] MEDS: BLOOD GLUCOSE MONITORING 1 DEV DEV FS SCH ×4 (06:37→20:28)
[2022-12-01 06:48] LABS: BASOPHILS % (AUTO) 0.6 % (0.0-2.0); EOSINOPHILS # (AUTO) 0.1 K/uL (0-0.4); EOSINOPHILS % (AUTO) 1.9 % (0.0-4.0); HEMOGLOBIN 10.3 g/dL (12.0-16.0); LYMPHOCYTES # (AUTO) 1.6 K/uL (2.5-16.5); LYMPHOCYTES % (AUTO) 26.2 % (20.5-51.1); MEAN CORPUSCULAR HEMOGLOBIN 29 pg (27-31); MEAN CORPUSCULAR HGB CONC 35 g/dL (33-37); MEAN CORPUSCULAR VOLUME 85.3 fL (80-94); MONOCYTES # (AUTO) 0.4 K/uL (0.8-1.0); MONOCYTES % (AUTO) 7.4 % (1.7-9.3); NEUTROPHILS # (AUTO) 3.8 K/uL (1.8-7.7); NEUTROPHILS % (AUTO) 63.9 % (42.2-75.2); PLATELET COUNT (AUTO) 251 K/uL (140-450); RED BLOOD CELL COUNT(AUTO) 3.52 MIL/uL (4.20-5.40); RED CELL DISTRIBUTION WIDTH 24.3 % (11.6-13.7); WHITE BLOOD COUNT (AUTO) 5.9 K/uL (4.8-10.8)
[2022-12-01 07:03] LABS: ANION GAP 12.3 (8-16); CARBON DIOXIDE 23.4 mmol/L (21-32); CHLORIDE 94 mmol/L (98-107); GLUCOSE 158 mg/dL (74-106); POTASSIUM 3.7 mmol/L (3.5-5.1); SODIUM SERUM 126 mmol/L (136-145); UREA NITROGEN, BLOOD 7 mg/dL (7-18)
[2022-12-01] MEDS: PANTOPRAZOLE 40 MG TABEC PO SCH (09:40)
[2022-12-01] MEDS: LOSARTAN 50 MG TAB PO SCH (09:41)
[2022-12-01] MEDS: SODIUM CHLORIDE 1 GM TAB PO SCH (17:14)
[2022-12-01] MEDS: ACETAMINOPHEN 325 MG TAB PO PRN (20:19)
[2022-12-02 04:00] VITALS: BP 133/73; PULSE 67; RESP 16; TEMP 98.1; O2SAT 98
[2022-12-02] MEDS: LEVOTHYROXINE 0.112 MG TAB PO SCH (06:32)
[2022-12-02] MEDS: SODIUM CHLORIDE 1 GM TAB PO SCH ×2 (06:32→17:06)
[2022-12-02] MEDS: BLOOD GLUCOSE MONITORING 1 DEV DEV FS SCH ×4 (06:33→20:32)
[2022-12-02 06:50] LABS: BASOPHILS # (AUTO) 0.1 K/uL (0.00-0.22); BASOPHILS % (AUTO) 0.8 % (0.0-2.0); EOSINOPHILS # (AUTO) 0.2 K/uL (0-0.4); EOSINOPHILS % (AUTO) 2.4 % (0.0-4.0); HEMATOCRIT 28.9 % (36-48); HEMOGLOBIN 10.3 g/dL (12.0-16.0); LYMPHOCYTES # (AUTO) 1.7 K/uL (2.5-16.5); LYMPHOCYTES % (AUTO) 26.1 % (20.5-51.1); MEAN CORPUSCULAR HEMOGLOBIN 30 pg (27-31); MEAN CORPUSCULAR HGB CONC 36 g/dL (33-37); MEAN CORPUSCULAR VOLUME 85.5 fL (80-94); MONOCYTES # (AUTO) 0.4 K/uL (0.8-1.0); MONOCYTES % (AUTO) 6.2 % (1.7-9.3); NEUTROPHILS # (AUTO) 4.2 K/uL (1.8-7.7); NEUTROPHILS % (AUTO) 64.5 % (42.2-75.2); PLATELET COUNT (AUTO) 239 K/uL (140-450); RED BLOOD CELL COUNT(AUTO) 3.39 MIL/uL (4.20-5.40); RED CELL DISTRIBUTION WIDTH 24.4 % (11.6-13.7); WHITE BLOOD COUNT (AUTO) 6.5 K/uL (4.8-10.8)
[2022-12-02 07:00] LABS: ANION GAP 15.2 (8-16); CALCIUM 9.2 mg/dL (8.5-10.1); CARBON DIOXIDE 21.9 mmol/L (21-32); CHLORIDE 95 mmol/L (98-107); CREATININE 1.1 mg/dL (0.6-1.3); GLUCOSE 155 mg/dL (74-106); POTASSIUM 4.1 mmol/L (3.5-5.1); SODIUM SERUM 128 mmol/L (136-145); UREA NITROGEN, BLOOD 7 mg/dL (7-18)
[2022-12-02 08:00] VITALS: PULSE 61; PULSE 64
[2022-12-02 08:38] VITALS: PULSE 72; RESP 20; O2SAT 99
[2022-12-02] MEDS: LOSARTAN 50 MG TAB PO SCH (09:30)
[2022-12-02] MEDS: PANTOPRAZOLE 40 MG TABEC PO SCH (09:33)
[2022-12-02] MEDS: ESCITALOPRAM 20 MG TAB PO SCH (09:33)
[2022-12-02] MEDS: INSULIN LISPRO SLIDING SCALE 100 UNITS/ML VIAL SUBQ PRN ×3 (12:07→20:37)
[2022-12-02 16:00] VITALS: BP 156/82; PULSE 70; PULSE 72; RESP 18; TEMP 97.6; O2SAT 98
[2022-12-02 20:00] VITALS: PULSE 83; RESP 18; O2SAT 97
[2022-12-02] MEDS: LORazepam 1 MG TAB PO PRN (20:12)
[2022-12-03 04:00] VITALS: BP 142/68; PULSE 70; RESP 18; TEMP 98.4; O2SAT 96
[2022-12-03] MEDS: LEVOTHYROXINE 0.112 MG TAB PO SCH (05:58)
[2022-12-03] MEDS: INSULIN LISPRO SLIDING SCALE 100 UNITS/ML VIAL SUBQ PRN ×3 (06:11→16:48)
[2022-12-03 07:07] LABS: BASOPHILS % (AUTO) 0.7 % (0.0-2.0); EOSINOPHILS # (AUTO) 0.2 K/uL (0-0.4); EOSINOPHILS % (AUTO) 3.4 % (0.0-4.0); HEMATOCRIT 29.6 % (36-48); HEMOGLOBIN 10.2 g/dL (12.0-16.0); LYMPHOCYTES # (AUTO) 1.8 K/uL (2.5-16.5); LYMPHOCYTES % (AUTO) 27.9 % (20.5-51.1); MEAN CORPUSCULAR HEMOGLOBIN 30 pg (27-31); MEAN CORPUSCULAR HGB CONC 34 g/dL (33-37); MONOCYTES # (AUTO) 0.5 K/uL (0.8-1.0); MONOCYTES % (AUTO) 7.5 % (1.7-9.3); NEUTROPHILS % (AUTO) 60.5 % (42.2-75.2); PLATELET COUNT (AUTO) 232 K/uL (140-450); RED CELL DISTRIBUTION WIDTH 24.7 % (11.6-13.7); WHITE BLOOD COUNT (AUTO) 6.6 K/uL (4.8-10.8)
[2022-12-03 07:13] LABS: CALCIUM 9.3 mg/dL (8.5-10.1); CARBON DIOXIDE 24.7 mmol/L (21-32); CHLORIDE 95 mmol/L (98-107); CREATININE 1.1 mg/dL (0.6-1.3); GLUCOSE 151 mg/dL (74-106); POTASSIUM 3.7 mmol/L (3.5-5.1); SODIUM SERUM 128 mmol/L (136-145); UREA NITROGEN, BLOOD 8 mg/dL (7-18)
[2022-12-03 08:00] VITALS: BP 145/69; PULSE 70; PULSE 73; RESP 18; TEMP 97.8; O2SAT 96; O2SAT 98
[2022-12-03] MEDS: BLOOD GLUCOSE MONITORING 1 DEV DEV FS SCH ×3 (08:16→16:48)
[2022-12-03] MEDS: LOSARTAN 50 MG TAB PO SCH (08:26)
[2022-12-03] MEDS: ESCITALOPRAM 20 MG TAB PO SCH (08:26)
[2022-12-03] MEDS: LORazepam 1 MG TAB PO PRN (08:26)
[2022-12-03] MEDS: PANTOPRAZOLE 40 MG TABEC PO SCH (08:27)
[2022-12-03] MEDS: SODIUM CHLORIDE 1 GM TAB PO SCH ×2 (08:27→16:48)
[2022-12-03] MEDS ORDERED: CIPR250T6 PO (12:04)
[2022-12-03 16:00] VITALS: BP 122/69; PULSE 81; RESP 18; TEMP 97.1; O2SAT 99
[2022-12-03 17:22] VITALS: BP 122/69; PULSE 81; RESP 18; TEMP 97.1
[2022-12-03] MEDS ORDERED: MEROPENEM 1,000 MG in NACL 0.9% 50 ML IV SCH (21:00)
== END 2022-12-03 19:20 | disposition short-term general hospital (02) | DRG 637 ==
LOC: MED 20:39 → MTU 11-29 00:55
PROVIDERS: ADMIT Student in an Organized Health Care Education/Training Program; ATTEND Student in an Organized Health Care Education/Training Program
DX: E11.649 Type 2 diabetes mellitus with hypoglycemia without coma (principal); G93.41 Metabolic encephalopathy; E87.1 Hypo-osmolality and hyponatremia; N39.0 Urinary tract infection, site not specified; Z16.19 Resistance to other specified beta lactam antibiotics; E87.5 Hyperkalemia; E11.65 Type 2 diabetes mellitus with hyperglycemia; E03.9 Hypothyroidism, unspecified; G30.9 Alzheimer's disease, unspecified; F02.80 Dementia in other diseases classified elsewhere, unspecified severity, without behavioral disturbance, psychotic disturbance, mood disturbance, and anxiety; I10 Essential (primary) hypertension; D64.9 Anemia, unspecified; B96.89 Other specified bacterial agents as the cause of diseases classified elsewhere; R00.1 Bradycardia, unspecified; E87.6 Hypokalemia
CPT/HCPCS: 36415; 71045; 80048; 80053; 81001; 82948; 83690; 83735; 83935; 84436; 84443; 84484; 85025; 85651; 86140; 87040; 87081; 87086; 93005; 96361; 96365; 97116; 97163-GP; 99291; J0696; J1644; J1815; J2185; J7060

== ENCOUNTER 2023-02-11 19:40 | Inpatient (IN) | payer OTHER ==
[~2023-02-11] VITALS: Ht 162.6 cm; Wt 86.2 kg
[~2023-02-11 19:40] MED LIST changes: -CEPH-588 PO; +CIPR250T6 PO
[2023-02-11 19:49] VITALS: BP 142/66; PULSE 56; RESP 18; TEMP 97; O2SAT 95
[2023-02-11 21:42] LABS: APPEARANCE,URINE HAZY (CLEAR); BILIRUBIN,URINE NEGATIVE (NEGATIVE); BLOOD, URINE NEGATIVE (NEGATIVE); COLOR,URINE YELLOW (YELLOW); LEUKOCYTE ESTERASE ,URINE 1+ (NEGATIVE); NITRITE, URINE NEGATIVE (NEGATIVE); PROTEIN,URINE TRACE (NEGATIVE); UGLUCOSE NEGATIVE (NEGATIVE)
[2023-02-11 21:54] LABS: FLU A ANTIGEN negative (NEGATIVE); FLU B ANTIGEN NEGATIVE (NEGATIVE)
[2023-02-11 21:57] LABS: RBC,URINE NONE SEEN /HPF (0-5); WBC,URINE 60-80 /HPF (0-5)
[2023-02-11 21:58] LABS: BACTERIA,URINE 2+ /HPF (None Seen); SQUAMOUS EPITHELIAL CELL,UR 0-3 (FEW) /LPF (0-3 (FEW))
[2023-02-11 22:10] LABS: BASOPHILS % (AUTO) 0.4 % (0.0-2.0); EOSINOPHILS # (AUTO) 0.1 K/uL (0-0.4); EOSINOPHILS % (AUTO) 1.7 % (0.0-4.0); HEMATOCRIT 33.9 % (36-48); HEMOGLOBIN 12.3 g/dL (12.0-16.0); LYMPHOCYTES # (AUTO) 1.2 K/uL (2.5-16.5); MEAN CORPUSCULAR HEMOGLOBIN 32 pg (27-31); MEAN CORPUSCULAR HGB CONC 36 g/dL (33-37); MEAN CORPUSCULAR VOLUME 89.1 fL (80-94); MONOCYTES # (AUTO) 0.4 K/uL (0.8-1.0); MONOCYTES % (AUTO) 6.5 % (1.7-9.3); NEUTROPHILS # (AUTO) 4.4 K/uL (1.8-7.7); NEUTROPHILS % (AUTO) 72.4 % (42.2-75.2); PLATELET COUNT (AUTO) 235 K/uL (140-450); RED CELL DISTRIBUTION WIDTH 16.5 % (11.6-13.7); WHITE BLOOD COUNT (AUTO) 6.1 K/uL (4.8-10.8)
[2023-02-11 22:33] LABS: ANION GAP 15.6 (8-16); CALCIUM 9.7 mg/dL (8.5-10.1); CARBON DIOXIDE 27.3 mmol/L (21-32); CHLORIDE 83 mmol/L (98-107); CREATININE 1.1 mg/dL (0.6-1.3); GLUCOSE 129 mg/dL (74-106); SODIUM SERUM 123 mmol/L (136-145); UREA NITROGEN, BLOOD 12 mg/dL (7-18)
[2023-02-11 22:34] LABS: INR 1.02 (0.8-1.2); PARTIAL THROMBOPLASTIN TIME 29.6 secs (22-35.6); PROTHROMBIN TIME 10.7 secs (10.8-13.4)
[2023-02-11 22:36] LABS: POTASSIUM 2.9 mmol/L (3.5-5.1)
[2023-02-11 22:41] LABS: ALKALINE PHOSPHATASE 41 U/L (50-136); ASPARTATE AMINOTRANSFERASE 46 U/L (15-37); BILIRUBIN,DIRECT 0.2 mg/dL (0.0-0.3)
[2023-02-11] MEDS ORDERED: cefTRIAXone 1,000 MG VIAL ONE (22:41)
[2023-02-11 22:42] LABS: ALANINE AMINOTRANSFERASE 47 U/L (12-78); ALBUMIN 3.2 g/dL (3.4-5.0); TOTAL PROTEIN, SERUM 7.7 g/dL (6.4-8.2)
[2023-02-11 22:43] LABS: TOTAL BILIRUBIN 0.7 mg/dL (0.0-1.0)
[2023-02-11] MEDS: POTASSIUM CHLORIDE 10 MEQ TABER PO ONE (23:06)
[2023-02-11] MEDS ORDERED: MEROPENEM 1,000 MG VIAL IV ONE ×2 (23:13→23:17)
[2023-02-11] MEDS: MEROPENEM 1,000 MG in NACL 0.9% 50 ML IV ONE (23:25)
[2023-02-11 23:47] VITALS: O2SAT 91
[2023-02-12] MEDS: NACL 0.9% 1,000 ML IV SCH (02:00)
[2023-02-12 03:18] VITALS: O2SAT 100
[2023-02-12 06:00] LABS: LACTIC ACID 1.7 mmol/L (0.4-2.0)
[2023-02-12 07:53] LABS: BASOPHILS % (AUTO) 0.7 % (0.0-2.0); EOSINOPHILS # (AUTO) 0.1 K/uL (0-0.4); EOSINOPHILS % (AUTO) 1.7 % (0.0-4.0); HEMATOCRIT 30.8 % (36-48); HEMOGLOBIN 11.1 g/dL (12.0-16.0); LYMPHOCYTES # (AUTO) 0.9 K/uL (2.5-16.5); LYMPHOCYTES % (AUTO) 17.8 % (20.5-51.1); MEAN CORPUSCULAR HEMOGLOBIN 32 pg (27-31); MEAN CORPUSCULAR HGB CONC 36 g/dL (33-37); MEAN CORPUSCULAR VOLUME 88.9 fL (80-94); MONOCYTES # (AUTO) 0.4 K/uL (0.8-1.0); MONOCYTES % (AUTO) 7.7 % (1.7-9.3); NEUTROPHILS # (AUTO) 3.8 K/uL (1.8-7.7); NEUTROPHILS % (AUTO) 72.1 % (42.2-75.2); PLATELET COUNT (AUTO) 214 K/uL (140-450); RED BLOOD CELL COUNT(AUTO) 3.46 MIL/uL (4.20-5.40); RED CELL DISTRIBUTION WIDTH 16.4 % (11.6-13.7); WHITE BLOOD COUNT (AUTO) 5.3 K/uL (4.8-10.8)
[2023-02-12 08:17] LABS: ALANINE AMINOTRANSFERASE 41 U/L (12-78); ALBUMIN 3.3 g/dL (3.4-5.0); ALKALINE PHOSPHATASE 46 U/L (50-136); ANION GAP 11.6 (8-16); ASPARTATE AMINOTRANSFERASE 40 U/L (15-37); CARBON DIOXIDE 27.9 mmol/L (21-32); CHLORIDE 90 mmol/L (98-107); CREATININE 1.1 mg/dL (0.6-1.3); GLUCOSE 111 mg/dL (74-106); POTASSIUM 3.5 mmol/L (3.5-5.1); SODIUM SERUM 126 mmol/L (136-145); TOTAL BILIRUBIN 0.5 mg/dL (0.0-1.0); TOTAL PROTEIN, SERUM 7.8 g/dL (6.4-8.2); UREA NITROGEN, BLOOD 10 mg/dL (7-18)
[2023-02-12] MEDS ORDERED: AZITHROMYCIN 500 MG in DEXTROSE 5% 250 ML IV SCH (09:00)
[2023-02-12] MEDS ORDERED: AZITHROMYCIN 500 MG INJ VIAL IV ONE (09:45)
[2023-02-12] MEDS ORDERED: DEXTROSE 50% 50 ML SYR IVP PRN (11:25)
[2023-02-12] MEDS: BLOOD GLUCOSE MONITORING 1 DEV DEV FS SCH (11:30)
[2023-02-12] MEDS: INSULIN LISPRO SLIDING SCALE 100 UNITS/ML VIAL SUBQ PRN (12:37)
[2023-02-12 20:10] VITALS: BP 126/72; PULSE 62; RESP 16; TEMP 96.9; O2SAT 99
[2023-02-12 20:18] VITALS: PULSE 61
[2023-02-13] VITALS (9 sets, daily range): BP systolic 110–141; BP diastolic 56–73; PULSE 65–97; RESP 18; TEMP 97–98.5; O2SAT 80–98
[2023-02-13] MEDS: cefTRIAXone 1,000 MG VIAL ONE (02:08)
[2023-02-13] MEDS: LEVOTHYROXINE 0.1 MG TAB PO SCH (05:25)
[2023-02-13] MEDS: LEVOTHYROXINE 0.1 MG TAB ONE (05:26)
[2023-02-13 07:06] LABS: BASOPHILS % (AUTO) 0.7 % (0.0-2.0); EOSINOPHILS # (AUTO) 0.1 K/uL (0-0.4); EOSINOPHILS % (AUTO) 1.6 % (0.0-4.0); HEMATOCRIT 33.7 % (36-48); HEMOGLOBIN 12.1 g/dL (12.0-16.0); LYMPHOCYTES # (AUTO) 1.2 K/uL (2.5-16.5); LYMPHOCYTES % (AUTO) 24.2 % (20.5-51.1); MEAN CORPUSCULAR HEMOGLOBIN 32 pg (27-31); MEAN CORPUSCULAR HGB CONC 36 g/dL (33-37); MONOCYTES # (AUTO) 0.4 K/uL (0.8-1.0); MONOCYTES % (AUTO) 8.2 % (1.7-9.3); NEUTROPHILS # (AUTO) 3.2 K/uL (1.8-7.7); NEUTROPHILS % (AUTO) 65.3 % (42.2-75.2); PLATELET COUNT (AUTO) 259 K/uL (140-450); RED BLOOD CELL COUNT(AUTO) 3.79 MIL/uL (4.20-5.40); RED CELL DISTRIBUTION WIDTH 16.4 % (11.6-13.7); WHITE BLOOD COUNT (AUTO) 4.9 K/uL (4.8-10.8)
[2023-02-13] MEDS: ATORVASTATIN 20 MG TAB PO SCH (08:14)
[2023-02-13 09:01] LABS: ALANINE AMINOTRANSFERASE 46 U/L (12-78); ALBUMIN 3.9 g/dL (3.4-5.0); ALKALINE PHOSPHATASE 53 U/L (50-136); ANION GAP 16.3 (8-16); ASPARTATE AMINOTRANSFERASE 48 U/L (15-37); CALCIUM 9.7 mg/dL (8.5-10.1); CARBON DIOXIDE 25.1 mmol/L (21-32); CHLORIDE 89 mmol/L (98-107); CREATININE 1.1 mg/dL (0.6-1.3); GLUCOSE 158 mg/dL (74-106); POTASSIUM 3.4 mmol/L (3.5-5.1); SODIUM SERUM 127 mmol/L (136-145); TOTAL BILIRUBIN 0.5 mg/dL (0.0-1.0); TOTAL PROTEIN, SERUM 9.3 g/dL (6.4-8.2); UREA NITROGEN, BLOOD 10 mg/dL (7-18)
[2023-02-13] MEDS: guaiFENesin 600 MG TABER PO SCH (10:47)
[2023-02-13] MEDS: POTASSIUM CHLORIDE 10 MEQ TABER PO SCH (11:31)
[2023-02-14] VITALS (11 sets, daily range): BP systolic 115–140; BP diastolic 69–81; PULSE 65–85; RESP 16–20; TEMP 97.6–98.8; O2SAT 96–100
[2023-02-14 07:18] LABS: BASOPHILS % (AUTO) 0.6 % (0.0-2.0); EOSINOPHILS # (AUTO) 0.1 K/uL (0-0.4); EOSINOPHILS % (AUTO) 1.4 % (0.0-4.0); HEMATOCRIT 31.3 % (36-48); HEMOGLOBIN 11.2 g/dL (12.0-16.0); LYMPHOCYTES # (AUTO) 1.1 K/uL (2.5-16.5); LYMPHOCYTES % (AUTO) 24.1 % (20.5-51.1); MEAN CORPUSCULAR HEMOGLOBIN 32 pg (27-31); MEAN CORPUSCULAR HGB CONC 36 g/dL (33-37); MEAN CORPUSCULAR VOLUME 90.3 fL (80-94); MONOCYTES # (AUTO) 0.4 K/uL (0.8-1.0); MONOCYTES % (AUTO) 7.8 % (1.7-9.3); NEUTROPHILS % (AUTO) 66.1 % (42.2-75.2); PLATELET COUNT (AUTO) 225 K/uL (140-450); RED BLOOD CELL COUNT(AUTO) 3.46 MIL/uL (4.20-5.40); RED CELL DISTRIBUTION WIDTH 16.3 % (11.6-13.7); WHITE BLOOD COUNT (AUTO) 4.6 K/uL (4.8-10.8)
[2023-02-14 07:38] LABS: ALANINE AMINOTRANSFERASE 44 U/L (12-78); ALBUMIN 3.4 g/dL (3.4-5.0); ALKALINE PHOSPHATASE 37 U/L (50-136); ASPARTATE AMINOTRANSFERASE 45 U/L (15-37); CARBON DIOXIDE 23.6 mmol/L (21-32); CHLORIDE 94 mmol/L (98-107); CREATININE 0.9 mg/dL (0.6-1.3); GLUCOSE 150 mg/dL (74-106); POTASSIUM 3.6 mmol/L (3.5-5.1); SODIUM SERUM 128 mmol/L (136-145); TOTAL BILIRUBIN 0.4 mg/dL (0.0-1.0); TOTAL PROTEIN, SERUM 7.4 g/dL (6.4-8.2); UREA NITROGEN, BLOOD 7 mg/dL (7-18)
[2023-02-14] MEDS ORDERED: ATOR20TA40 PO (12:12)
[2023-02-14] MEDS ORDERED: CIPR250T3 PO (12:12)
[2023-02-14] MEDS: CIPROFLOXACIN 250 MG TAB PO SCH (20:11)
[2023-02-15] VITALS: BP 133/75; PULSE 69; RESP 20; TEMP 98; O2SAT 94
[2023-02-15 00:45] VITALS: PULSE 72
[2023-02-15 03:54] VITALS: BP 141/75; PULSE 64; RESP 19; TEMP 97.8; O2SAT 96
[2023-02-15 03:55] VITALS: PULSE 70
[2023-02-15 06:27] LABS: BASOPHILS % (AUTO) 0.9 % (0.0-2.0); EOSINOPHILS # (AUTO) 0.1 K/uL (0-0.4); EOSINOPHILS % (AUTO) 1.8 % (0.0-4.0); HEMATOCRIT 32.4 % (36-48); HEMOGLOBIN 11.8 g/dL (12.0-16.0); LYMPHOCYTES # (AUTO) 1.3 K/uL (2.5-16.5); LYMPHOCYTES % (AUTO) 26.2 % (20.5-51.1); MEAN CORPUSCULAR HEMOGLOBIN 33 pg (27-31); MEAN CORPUSCULAR HGB CONC 36 g/dL (33-37); MEAN CORPUSCULAR VOLUME 89.3 fL (80-94); MONOCYTES # (AUTO) 0.3 K/uL (0.8-1.0); MONOCYTES % (AUTO) 6.1 % (1.7-9.3); NEUTROPHILS # (AUTO) 3.1 K/uL (1.8-7.7); PLATELET COUNT (AUTO) 250 K/uL (140-450); RED BLOOD CELL COUNT(AUTO) 3.63 MIL/uL (4.20-5.40); RED CELL DISTRIBUTION WIDTH 16.3 % (11.6-13.7); WHITE BLOOD COUNT (AUTO) 4.8 K/uL (4.8-10.8)
[2023-02-15 06:49] LABS: ALANINE AMINOTRANSFERASE 53 U/L (12-78); ALBUMIN 3.7 g/dL (3.4-5.0); ALKALINE PHOSPHATASE 48 U/L (50-136); ANION GAP 14.1 (8-16); ASPARTATE AMINOTRANSFERASE 65 U/L (15-37); CALCIUM 9.1 mg/dL (8.5-10.1); CARBON DIOXIDE 24.6 mmol/L (21-32); CHLORIDE 93 mmol/L (98-107); GLUCOSE 176 mg/dL (74-106); POTASSIUM 3.7 mmol/L (3.5-5.1); SODIUM SERUM 128 mmol/L (136-145); TOTAL BILIRUBIN 0.6 mg/dL (0.0-1.0); TOTAL PROTEIN, SERUM 8.9 g/dL (6.4-8.2); UREA NITROGEN, BLOOD 10 mg/dL (7-18)
[2023-02-15 08:00] VITALS: BP 152/80; PULSE 75; PULSE 76; PULSE 86; RESP 20; TEMP 98; O2SAT 100; O2SAT 96
[2023-02-15 14:03] VITALS: BP 152/80; PULSE 75; RESP 20; TEMP 98
== END 2023-02-15 15:00 | DRG 871 ==
LOC: MED 19:40 → MTU 02-12 00:53
PROVIDERS: ADMIT Family Medicine; ATTEND Family Medicine
DX: A41.9 Sepsis, unspecified organism (principal); J96.01 Acute respiratory failure with hypoxia; N39.0 Urinary tract infection, site not specified; E44.1 Mild protein-calorie malnutrition; F03.90 Unspecified dementia, unspecified severity, without behavioral disturbance, psychotic disturbance, mood disturbance, and anxiety; I10 Essential (primary) hypertension; E87.6 Hypokalemia; E03.9 Hypothyroidism, unspecified; Z20.822 Contact with and (suspected) exposure to COVID-19; E11.9 Type 2 diabetes mellitus without complications; Z85.43 Personal history of malignant neoplasm of ovary; Z68.32 Body mass index [BMI] 32.0-32.9, adult
CPT/HCPCS: 36415; 70450; 71045; 80048; 80053; 80076; 81001; 82948; 83036; 83605; 83880; 84443; 84484; 85025; 85610; 85730; 87040; 87081; 87086; 93005; 96365; 96375; 97110; 97116; 97530; 99285; J0456; J0696; J1815; J2185; J7060; Q0092

== ENCOUNTER 2023-10-23 06:40 | Emergency (ER) | payer OTHER ==
[~2023-10-23] VITALS: Ht 160 cm; Wt 72.6 kg
[~2023-10-23 06:40] MED LIST changes: +ATOR20TA40 PO; +CIPR250T3 PO; -CIPR250T6 PO; -CLON0.1T16 PO; -DICL100G32 TP; -FURO20TA8 PO; -MELO-174 PO; -ROSU10TA34 PO
[2023-10-23 06:42] VITALS: BP 130/72; PULSE 76; RESP 16; TEMP 98; O2SAT 98
[2023-10-23] MEDS ORDERED: KETOROLAC 30 MG/ML VIAL ONE (06:57)
[2023-10-23] MEDS: KETOROLAC 30 MG/ML VIAL IM ONE (07:01)
[2023-10-23] MEDS ORDERED: MELO-174 PO (08:16)
[2023-10-23 08:36] LABS: BILIRUBIN,URINE NEGATIVE (NEGATIVE); BLOOD, URINE NEGATIVE (NEGATIVE); COLOR,URINE YELLOW (YELLOW); LEUKOCYTE ESTERASE ,URINE 2+ (NEGATIVE); PH,URINE 7.5 (5.0-9.0); PROTEIN,URINE 1+ (NEGATIVE); UGLUCOSE NEGATIVE (NEGATIVE); UROBILINOGEN,URINE 0.2 EU/dL (0.2 - 1)
[2023-10-23 08:52] LABS: RBC,URINE 0-5 /HPF (0-5)
[2023-10-23 08:54] LABS: APPEARANCE,URINE HAZY (CLEAR); BACTERIA,URINE 2+ /HPF (None Seen); NITRITE, URINE POSITIVE (NEGATIVE); SQUAMOUS EPITHELIAL CELL,UR 0-3 (FEW) /LPF (0-3 (FEW))
[2023-10-23] MEDS ORDERED: NITR100C7 PO (08:55)
[2023-10-23] MEDS ORDERED: SULF-58 PO (08:58)
[2023-10-23 08:59] VITALS: O2SAT 98
[2023-10-23 11:45] VITALS: O2SAT 98
[2023-10-23 12:43] VITALS: BP 122/62; PULSE 73; RESP 16; TEMP 97.9; O2SAT 98
== END 2023-10-23 12:43 | disposition home or self-care (01) ==
LOC: MED 06:40
DX: S83.91XA Sprain of unspecified site of right knee, initial encounter (principal); M25.562 Pain in left knee; N39.0 Urinary tract infection, site not specified; I10 Essential (primary) hypertension; E11.9 Type 2 diabetes mellitus without complications; Z79.84 Long term (current) use of oral hypoglycemic drugs; Z79.899 Other long term (current) drug therapy; W01.0XXA Fall on same level from slipping, tripping and stumbling without subsequent striking against object, initial encounter; Y93.89 Activity, other specified; Y92.89 Other specified places as the place of occurrence of the external cause; Y99.8 Other external cause status
CPT/HCPCS: 73562; 81001; 87086; 87186; 96372; 99285; J1885; Q0092